=== PATIENT | female | born 1975 | race Caucasian/White ===

== ENCOUNTER 2021-02-08 16:34 | Emergency (ER) | payer OTHER, SELFPAY ==
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
[2021-02-08 17:36] VITALS: BP 189/90; PULSE 103; RESP 16; TEMP 36.9; O2SAT 100; BMI 33.5
[2021-02-08] MEDS: Acetaminophen 325 MG TABLET 975 MG PO (18:49)
--- NOTE | 2021-02-08 18:53 | PC.NURSE ---
WAITING FOR URINE PREG. FLEXERIL HELD UNTIL NEG UCG RESULTS.
[2021-02-08 19:37] LABS: Appearance Urine HAZY; Color Urine STRAW; Glucose Urine UA NEG (NEG); Leukocyte Esterase Urine TRACE (NEG); Nitrite Urine NEG (NEG); UACC Culture Trigger YES; UPreg QC Valid YES; Urine Blood 3+ (NEG); Urine Ketones NEG (NEG); Urine Pregnancy NEGATIVE (NEGATIVE); Urine Protein NEG (NEG-TRACE)
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
[2021-02-08 19:46] LABS: Bacteria Urine 1+ /LPF; Squamous Epithelial Cell Urine 1+ /LPF
[2021-02-08] MEDS: Cyclobenzaprine HCl 10 MG TABLET PO (20:00)
== END 2021-02-08 20:15 | disposition home or self-care (01) ==
PROVIDERS: Emergency Provider Internal Medicine
DX: S19.9XXA Unspecified injury of neck, initial encounter (principal); S13.4XXA Sprain of ligaments of cervical spine, initial encounter; S29.011A Strain of muscle and tendon of front wall of thorax, initial encounter; M54.5 Low back pain; M54.2 Cervicalgia; V43.62XA Car passenger injured in collision with other type car in traffic accident, initial encounter; Y93.9 Activity, unspecified; Y92.410 Unspecified street and highway as the place of occurrence of the external cause; Y99.9 Unspecified external cause status
CPT/HCPCS: 71046; 72100; 72125; 81001; 81025; 87086; 87088; 87186; 99284